=== PATIENT | male | born 1975 | race Caucasian/White ===

== ENCOUNTER 2019-03-09 19:08 | Emergency (ER) | payer SELFPAY ==
[~2019-03-09] VITALS: Ht 182.9 cm; Wt 100.7 kg
[2019-03-09 19:11] VITALS: Ht 182.9 cm; Wt 100.7 kg
[2019-03-09] MEDS ORDERED: IBUP-1542 PO (22:08)
[2019-03-09 22:33] VITALS: BP 157/93; PULSE 91; RESP 17
--- NOTE | 2019-03-10 04:49 | ERD ---
ER Documentation Chief Complaint Chief Complaint [facility]; IBUPROFEN @1700 HPI This is a 43-year-old male with history of multiple injuries to his right ankle presents to the ED complaining of right ankle pain status post mechanical slip and fall down a hill while at work earlier today. Patient states his ankle everted and he has been unable to bear weight since the fall. There is no head injury or loss of consciousness. Pain has been getting progressively worse, and is associated with swelling of his lateral malleolus. He denies any numbness, Alivia, focal weakness. No other injuries reported. ROS All systems reviewed and are negative except as per history of present illness. Medications Home Meds Active Scripts Ibuprofen* (Motrin*) 600 Mg Tab, 600 MG PO Q6H PRN for PAIN AND OR ELEVATED TEMP, #30 TAB Prov:OH HERNÁNDEZ PA-C 03/09/19 PMhx/Soc Medical and Surgical Hx: pt denies Medical Hx, pt denies Surgical Hx Hx Alcohol Use: No Hx Substance Use: No Hx Tobacco Use: No Smoking Status: Never smoker Physical Exam Vitals Vital Signs Date Temp Pulse Resp B/P (MAP) Pulse Ox O2 O2 Flow FiO2 Time Delivery Rate 03/09/19 98.9 91 17 157/93 99 Room Air 22:33 (114) 03/09/19 99.2 92 17 163/94 99 19:11 (117) Physical Exam Const: No acute distress Head: Atraumatic Eyes: Normal Conjunctiva ENT: Normal External Ears, Nose and Mouth. Neck: Full range of motion. No meningismus. Skin: No petechiae or rashes Back: No midline or flank tenderness Lower Extremity -right Skin: No laceration Compartments: Soft Motor: + Limited range of motion of the ankle. Full active range of motion of knee. Sensation: Intact to light touch FDWS/MF/LF/P surfaces. Bones: + Moderate pain to palpation of the lateral malleoli with soft tissue swelling. Nontender knee/proximal tibia Joints: No effusion or laxity Pulses/Perfusion: 2+ DP, Capillary refill < 2 seconds Neur: Awake and alert Psych: Normal Mood and Affect Procedures/MDM LABS & DIAGNOSTIC IMAGING: PROCEDURE: XR right ankle CLINICAL INDICATION: Ankle pain. TECHNIQUE: Three portable views of the ankle were obtained. COMPARISON: None. FINDINGS: There is no acute fracture or dislocation. There is mild tibiotalar osteoarthritis. Osseous structures are intact. A 10 x 4 mm corticated osseous density adjacent to medial malleolus could be related to an old injury. There is marked soft tissue swelling over the lateral malleolus. IMPRESSION: 1. No acute osseous abnormality. 2. Mild tibiotalar osteoarthritis. 3. Marked lateral ankle soft tissue swelling. PROCEDURES: Splint Assessment: Neurovascularly intact post splint placement with good fit. MEDICAL DECISION MAKING: This is a 43-year-old male presents to the ED complaining of right ankle pain status post inversion injury earlier today. Patient is neurovascular intact. Physical exam is benign. X-rays of his ankle without any acute evidence of fracture or dislocation. I discussed with patient that although x-rays are normal, I cannot rule out an occult fracture or ligamentous injury. He was placed in an William wrap for comfort and given crutches. Recommended RICE therapy for the next 48 hours. If he is still having pain in 1 week, recommend repeat imaging or possible MRI through his primary care provider. Patient does not need any further emergent workup here. I low suspicion for compartment syndrome, neurologic injury, vascular injury, open joint, open fracture, tendon laceration or foreign body. Strict return precautions discussed. PRESCRIPTIONS: Ibuprofen SPECIALIST FOLLOW UP RECOMMENDED: None Patient has been advised to follow up with primary care in 1-2 days. Blood Pressure Assessment: Patient's blood pressure was elevated (>120/80) but appears stable without evidence of hypertension emergency or urgency. The patient was counseled about the risks of hypertension and urged to pursue outpatient monitoring and therapy within a week with their primary care physician. Departure Diagnosis: Primary Impression: Ankle injury Encounter type: initial encounter Laterality: right Qualified Codes: S9 9.911A - Unspecified injury of right ankle, initial encounter Condition: Stable Patient Instructions: Treating Ankle Sprains Referrals: COMM[facility]ITY CLINICS YOU HAVE RECEIVED A MEDICAL SCREENING EXAM AND THE RESULTS INDICATE THAT YOU DO NOT HAVE A CONDITION THAT REQUIRES URGENT TREATMENT IN THE EMERGENCY DEPARTMENT. FURTHER EVALUATION AND TREATMENT OF YOUR CONDITION CAN WAIT UNTIL YOU ARE SEEN IN YOUR DOCTORS OFFICE WITHIN THE NEXT 1-2 DAYS. IT IS YOUR RESPONSIBILITY TO MAKE AN APPOINTMENT FOR FOLOW-UP CARE. IF YOU HAVE A PRIMARY DOCTOR --you should call your primary doctor and schedule an appointment IF YOU DO NOT HAVE A PRIMARY DOCTOR YOU CAN CALL OUR PHYSICIAN REFERRAL HOTLINE AT IF YOU CAN NOT AFFORD TO SEE A PHYSICIAN YOU CAN CHOSE FROM THE FOLLOWING [facility] [address] [facility] [address] [facility] [address] [facility] [address] [facility] [address] [facility]. [facility] [address] [facility]. [facility] YOU HAVE RECEIVED A MEDICAL SCREENING EXAM AND THE RESULTS INDICATE THAT YOU DO NOT HAVE A CONDITION THAT REQUIRES URGENT TREATMENT IN THE EMERGENCY DEPARTMENT. FURTHER EVALUATION AND TREATMENT OF YOUR CONDITION CAN WAIT UNTIL YOU ARE SEEN IN YOUR DOCTORS OFFICE WITHIN THE NEXT 1-2 DAYS. IT IS YOUR RESPONSIBILITY TO MAKE AN APPOINTMENT FOR FOLOW-UP CARE. IF YOU HAVE A PRIMARY DOCTOR --you should call your primary doctor and schedule and appointment IF YOU DO NOT HAVE A PRIMARY DOCTOR YOU CAN CALL OUR PHYSICIAN REFERRAL HOTLINE AT . IF YOU CAN NOT AFFORD TO SEE A PHYSICIAN YOU CAN CHOSE FROM THE FOLLOWING [facility]: [facility] [address] [place] [address] [facility] [address] [place] [address] [facility] [address] [place] [address] [facility] Additional Instructions: keep iced and elevated for the next 24-48 hours. Remain nonweight bearing until tolerated. Follow up with your regular docotor in 2 days. Return here for any new or worsening symptoms. OH HERNÁNDEZ PA-C Mar 10, 2019 04:49
== END 2019-03-09 22:34 | disposition home or self-care (01) ==
LOC: FTE 19:08
DX: S99.911A Unspecified injury of right ankle, initial encounter (principal); W01.0XXA Fall on same level from slipping, tripping and stumbling without subsequent striking against object, initial encounter; Y92.89 Other specified places as the place of occurrence of the external cause